=== PATIENT | female | born 1985 | race Caucasian/White ===

== ENCOUNTER 2018-11-15 15:49 | Outpatient (CLI) | payer OTHER ==
[2018-11-15 16:37] LABS: ADD UMIC YES; UR ASCORBIC ACID NEGATIVE (NEGATIVE); UR BACTERIA FEW /HPF (NONE SEEN); UR BILIRUBIN (Dip) NEGATIVE (NEGATIVE); UR BLOOD (Dip) NEGATIVE (NEGATIVE); UR CLARITY CLOUDY (CLEAR); UR COLOR YELLOW (YELLOW); UR GLUCOSE (Dip) 1+ mg/dL (NEGATIVE); UR KETONES (Dip) NEGATIVE (NEGATIVE); UR LEUKOCYTE ESTERASE (Dip) NEGATIVE Leu/ul (NEGATIVE); UR MUCUS FEW /HPF (NONE SEEN); UR NITRITE (Dip) NEGATIVE (NEGATIVE); UR RBC 0 /HPF (0-5); UR SPECIFIC GRAVITY (Dip) 1.014 (1.003-1.030); UR SQUAMOUS EPITHELIAL CELL MODERATE /HPF (FEW); UR TOTAL PROTEIN (Dip) NEGATIVE (NEGATIVE); UR UROBILINOGEN (Dip) NEGATIVE (NEGATIVE); UR WBC 3 /HPF (0-5)
== END 2018-11-15 17:06 | disposition home or self-care (01) ==
LOC: OBT 15:49 → L-D 15:51 → OBT 17:06
DX: O26.893 Other specified pregnancy related conditions, third trimester (principal); R10.2 Pelvic and perineal pain; Z3A.38 38 weeks gestation of pregnancy
CPT/HCPCS: 76817; 76818; 81001

== ENCOUNTER 2018-12-30 09:36 | Outpatient (CLI) | payer OTHER ==
[2018-12-30 11:47] LABS: RUPTURE FETAL MEMBRANES NEGATIVE (NEGATIVE)
== END 2018-12-30 13:10 | disposition home or self-care (01) ==
LOC: OBT 09:36 → L-D 09:36 → OBT 13:10
DX: O26.893 Other specified pregnancy related conditions, third trimester (principal); N89.8 Other specified noninflammatory disorders of vagina; Z3A.35 35 weeks gestation of pregnancy
CPT/HCPCS: 76815; 84112

== ENCOUNTER 2019-01-12 10:28 | Outpatient (CLI) | payer OTHER | END 2019-01-12 13:35 | disposition home or self-care (01) | LOC: OBT 10:28 → L-D 10:30 → OBT 13:35 | DX: O35.8XX0 Maternal care for other (suspected) fetal abnormality and damage, not applicable or unspecified (principal); Z3A.37 37 weeks gestation of pregnancy | CPT/HCPCS: 76815 ==

== ENCOUNTER 2019-01-19 11:32 | Outpatient (CLI) | payer OTHER | END 2019-01-19 14:13 | disposition home or self-care (01) | LOC: OBT 11:32 → L-D 11:32 → OBT 14:13 | DX: O43.123 Velamentous insertion of umbilical cord, third trimester (principal); Z3A.38 38 weeks gestation of pregnancy | CPT/HCPCS: 76818 ==

== ENCOUNTER 2019-01-22 07:36 | Outpatient (CLI) | payer OTHER | END 2019-01-22 09:30 | disposition home or self-care (01) | LOC: OBT 07:36 → L-D 07:36 → OBT 09:30 | DX: O43.123 Velamentous insertion of umbilical cord, third trimester (principal); Z3A.38 38 weeks gestation of pregnancy | CPT/HCPCS: 76818 ==